=== PATIENT | male | born 1985 | race African-American/Black ===

== ENCOUNTER 2017-04-28 13:39 | Inpatient (IN) | payer MEDICARE, MEDICAID ==
[~2017-04-28] VITALS: Ht 180.3 cm; Wt 85.3 kg
[2017-04-28 15:43] VITALS: BP 106/73
[2017-04-28] MEDS ORDERED: ZOLPIDEM TARTRATE 10 MG TABLET PO PRN (16:00)
[2017-04-28] MEDS ORDERED: OLANZapine 5 MG RAPDIS TABLET PO PRN (16:00)
[2017-04-28 16:35] VITALS: BP 108/73
[2017-04-28] MEDS: LORazepam 2 MG TABLET PO PRN (16:48)
[2017-04-28] MEDS ORDERED: MAG HYDROX/AL HYDROX/SIMETH ES 30 ML SUSPENSION UDCUP PO PRN (18:15)
[2017-04-28] MEDS ORDERED: MAGNESIUM HYDROXIDE SUSPENSION 30 ML UDCUP PO PRN (18:15)
[2017-04-28] MEDS ORDERED: HydrOXYzine PAMOATE 50 MG CAPSULE PO PRN (18:15)
[2017-04-28] MEDS ORDERED: GuaiFENesin/D-METHORPHAN [SUGAR-FREE] 200-20MG/10 ML SYRUP UDCUP PO PRN (18:15)
[2017-04-28] MEDS ORDERED: LOPERAMIDE HCL 2 MG CAPSULE PO PRN (18:15)
[2017-04-28] MEDS ORDERED: OLANZapine 5 MG RAPDIS TABLET PO SCH (21:00)
[2017-04-29 00:10] VITALS: BP 109/64
[2017-04-29] MEDS: LORazepam 2 MG TABLET PO PRN (01:18)
[2017-04-29 08:00] VITALS: BP 121/70
[2017-04-29] MEDS ORDERED: PNEUMOCOCCAL VACCINE POLYVALENT 0.5 ML VIAL [PPSV23] IM ONE (08:00)
[2017-04-29] MEDS ORDERED: FLUoxetine HCL 20 MG CAPSULE PO SCH (09:00)
[2017-04-29 09:08] LABS: BASOPHILS % (AUTO) 0.5 % (0.0-2.0); EOSINOPHILS % (AUTO) 4.3 % (1.0-6.0); HEMATOCRIT 38.4 % (41-53); LYMPHOCYTES # (AUTO) 0.7 K/uL (1.0-4.8); LYMPHOCYTES % (AUTO) 15.9 % (22.0-44.0); MEAN CORPUSCULAR HEMOGLOBIN 27.3 pg (26.0-34.0); MEAN CORPUSCULAR HGB CONC 33.8 G/dL (31.0-37.0); MEAN CORPUSCULAR VOLUME 81 fL (80-100); MONOCYTES # (AUTO) 0.5 K/uL (0.1-1.0); NEUTROPHILS # (AUTO) 3.1 K/uL (1.8-7.7); NEUTROPHILS % (AUTO) 68.3 % (40.0-70.0); PLATELET COUNT (AUTO) 98 K/uL (150-450); RED BLOOD CELL COUNT(AUTO) 4.75 MIL/uL (4.50-5.90); RED CELL DISTRIBUTION WIDTH 15.3 % (11.5-14.5); WHITE BLOOD COUNT (AUTO) 4.5 K/uL (4.5-11.0)
[2017-04-29] MEDS: MULTIVITAMINS WITH MINERALS, THERAPEUTIC TABLET PO SCH (09:30)
[2017-04-29] MEDS: THIAMINE HCL 100 MG TABLET PO SCH ×2 (09:30→16:45)
[2017-04-29] MEDS: FOLIC ACID 1 MG TABLET PO SCH (09:30)
[2017-04-29 09:32] LABS: HEMOGLOBIN A1C 5.8 % (4.5-6.2)
[2017-04-29 09:57] LABS: APPEARANCE,URINE CLEAR (CLEAR); GLUCOSE, URINE (UA) NEGATIVE (NEGATIVE); KETONES,URINE NEGATIVE (NEGATIVE); LEUKOCYTE ESTERASE ,URINE NEGATIVE (NEGATIVE); OCCULT BLOOD,URINE NEGATIVE (NEGATIVE); PH,URINE 7.5 (5.0-8.0); PROTEIN,URINE NEGATIVE (NEGATIVE)
[2017-04-29 09:58] LABS: ADD UA MICROSCOPIC NO
[2017-04-29 10:06] LABS: ALANINE AMINOTRANSFERASE 56 U/L (12-78); ALBUMIN 3.5 g/dL (3.4-5.0); ANION GAP 7 mmol/L (8-16); ASPARTATE AMINOTRANSFERASE 36 U/L (15-37); BILIRUBIN,TOTAL 0.6 mg/dL (0.1-1.0); CALCIUM, TOTAL 8.6 mg/dL (8.8-10.5); CARBON DIOXIDE 27 mmol/L (22-29); CHLORIDE 105 mmol/L (98-107); CHOL/HDL RATIO 3.5 (4.2-7.3); CREATINE KINASE MB 1.3 ng/mL (0-5); CREATINE KINASE, TOTAL 584 U/L (39-308); CREATININE 1.23 mg/dL (0.60-1.30); GLOMERULAR FILTR. RATE CALC > 60 mL/min (>60); POTASSIUM 3.8 mmol/L (3.5-5.1); SODIUM SERUM 139 mmol/L (136-145); THYROID STIMULATING HORMONE 0.53 uIU/mL (0.36-3.74); TOTAL PROTEIN, SERUM 7.1 g/dL (6.4-8.2); UREA NITROGEN, BLOOD 8 mg/dL (7-18)
[2017-04-29] MEDS ORDERED: LORazepam 2 MG TABLET PO ONE (14:00)
[2017-04-29 16:00] VITALS: BP 117/67
[2017-04-29] MEDS: MAGNESIUM OXIDE 400 MG TABLET PO SCH (16:45)
[2017-04-29] MEDS: DICYCLOMINE HCL 10 MG CAPSULE PO SCH (16:45)
[2017-04-29] MEDS: PARoxetine HCL 20 MG TABLET PO SCH (20:38)
[2017-04-29] MEDS: TraZODone HCL 100 MG TABLET PO SCH (20:38)
[2017-04-29] MEDS: OLANZapine 5 MG RAPDIS TABLET PO SCH (20:38)
[2017-04-30] VITALS (7 sets, daily range): BP systolic 100–116; BP diastolic 61–81
[2017-04-30] MEDS: ACETAMINOPHEN 325 MG TABLET PO PRN ×2 (00:20→16:05)
[2017-04-30] MEDS: DARUNAVIR ETHANOLATE 800 MG TABLET PO SCH (06:43)
[2017-04-30] MEDS: MULTIVITAMINS WITH MINERALS, THERAPEUTIC TABLET PO SCH (08:54)
[2017-04-30] MEDS: MAGNESIUM OXIDE 400 MG TABLET PO SCH ×2 (08:54→16:05)
[2017-04-30] MEDS: DICYCLOMINE HCL 10 MG CAPSULE PO SCH ×2 (08:54→16:05)
[2017-04-30] MEDS: FOLIC ACID 1 MG TABLET PO SCH (08:54)
[2017-04-30] MEDS: EMTRICITABINE/TENOFOVIR 200-300 MG TABLET PO SCH (08:54)
[2017-04-30] MEDS: THIAMINE HCL 100 MG TABLET PO SCH ×2 (08:54→16:05)
[2017-04-30 09:16] LABS: LYMPHS % FOR CD4 COUNT 17 %; LYMPHS ABS FOR CD4 COUNT 0.7 x10E3/uL (0.7-3.1); WBC FOR CD4 COUNT 4.3 x10E3/uL (3.4-10.8)
[2017-04-30 11:09] LABS: HEPATITIS Bs ANTIGEN SCREEN P Negative (Negative); HEPATITIS C AB SCREEN <0.1 s/co ratio (0.0-0.9)
[2017-04-30 15:09] LABS: ABSOLUTE CD4 COUNT 104 /uL (359-1519); PERCENT CD4 CELLS 14.9 % (30.8-58.5)
[2017-04-30] MEDS: PROMETHAZINE HCL 25 MG TABLET PO PRN (17:08)
[2017-04-30] MEDS: SULFAMETHOX/TRIMETH DS 800-160 MG/TABLET PO SCH (17:08)
[2017-04-30] MEDS ORDERED: bactrim PO (19:23)
[2017-04-30] MEDS ORDERED: DICY10 PO (19:26)
[2017-04-30] MEDS ORDERED: PROM25 PO (19:26)
[2017-04-30] MEDS ORDERED: VITA1TAB22 PO (19:26)
[2017-04-30] MEDS ORDERED: ACET-784 PO (19:26)
[2017-04-30] MEDS: OLANZapine 5 MG RAPDIS TABLET PO SCH (21:00)
[2017-04-30] MEDS: TraZODone HCL 100 MG TABLET PO SCH (21:00)
[2017-04-30] MEDS: PARoxetine HCL 20 MG TABLET PO SCH (21:00)
[2017-05-01 00:05] VITALS: BP 101/60
[2017-05-01] MEDS ORDERED: GuaiFENesin/CODEINE [SUGAR FREE] 200-20MG/10 ML SYRUP UDCUP PO PRN (05:00)
[2017-05-01] MEDS ORDERED: ALBUTEROL SULFATE HFA 90 MCG/PUFF 8 GM INHALER IH SCH (06:00)
[2017-05-01] MEDS ORDERED: ALBUTEROL SULFATE HFA 90 MCG/PUFF 8 GM INHALER IH PRN (06:45)
[2017-05-01 06:51] VITALS: BP 106/65
[2017-05-01] MEDS: ACETAMINOPHEN 325 MG TABLET PO PRN ×2 (06:54→16:29)
[2017-05-01] MEDS: DARUNAVIR ETHANOLATE 800 MG TABLET PO SCH (07:03)
[2017-05-01 08:34] VITALS: BP 114/64
[2017-05-01] MEDS: MULTIVITAMINS WITH MINERALS, THERAPEUTIC TABLET PO SCH (08:37)
[2017-05-01] MEDS: MAGNESIUM OXIDE 400 MG TABLET PO SCH ×2 (08:38→16:48)
[2017-05-01] MEDS: THIAMINE HCL 100 MG TABLET PO SCH ×2 (08:38→16:48)
[2017-05-01] MEDS: SULFAMETHOX/TRIMETH DS 800-160 MG/TABLET PO SCH (08:38)
[2017-05-01] MEDS: DICYCLOMINE HCL 10 MG CAPSULE PO SCH ×2 (08:38→16:48)
[2017-05-01] MEDS: FOLIC ACID 1 MG TABLET PO SCH (08:38)
[2017-05-01] MEDS: CLARITHROMYCIN 500 MG TABLET PO SCH ×2 (08:38→16:48)
[2017-05-01] MEDS: EMTRICITABINE/TENOFOVIR 200-300 MG TABLET PO SCH (08:38)
[2017-05-01 08:49] LABS: CREATINE KINASE, TOTAL 162 U/L (39-308)
[2017-05-01 09:01] LABS: CREATINE KINASE MB < 0.5 ng/mL (0-5)
[2017-05-01] MEDS: LORazepam 2 MG TABLET PO PRN (11:45)
[2017-05-01] MEDS ORDERED: PARO20TA24 PO (11:48)
[2017-05-01] MEDS ORDERED: TRAZ-147 PO (11:48)
[2017-05-01] MEDS ORDERED: OLAN5Z PO (11:48)
[2017-05-01 13:33] LABS: HIV CONFIRM? YES (NP)
[2017-05-01 16:14] VITALS: BP 111/65
[2017-05-01] MEDS: OLANZapine 5 MG RAPDIS TABLET PO SCH (20:39)
[2017-05-01] MEDS: TraZODone HCL 100 MG TABLET PO SCH (20:39)
[2017-05-01] MEDS ORDERED: PARoxetine HCL 20 MG TABLET PO SCH (21:00)
[2017-05-02] MEDS: PROMETHAZINE HCL 25 MG TABLET PO PRN (00:22)
[2017-05-02 00:25] VITALS: BP 116/64
[2017-05-02] MEDS: LORazepam 2 MG TABLET PO PRN (00:28)
[2017-05-02 06:00] VITALS: BP 101/60
[2017-05-02] MEDS: DARUNAVIR ETHANOLATE 800 MG TABLET PO SCH (07:05)
[2017-05-02] MEDS ORDERED: CLAR500T3 PO (08:30)
[2017-05-02] MEDS ORDERED: DARU800T PO (08:31)
[2017-05-02] MEDS ORDERED: FOLI1 PO (08:32)
[2017-05-02] MEDS ORDERED: EMTR1TAB11 PO (08:32)
[2017-05-02] MEDS ORDERED: MAGOX PO (08:33)
[2017-05-02 08:35] VITALS: BP 98/59
[2017-05-02] MEDS ORDERED: MULT-1239 PO (08:36)
[2017-05-02] MEDS ORDERED: OLAN10TA3 PO (08:36)
[2017-05-02] MEDS ORDERED: PARO20TA24 PO (08:37)
[2017-05-02] MEDS ORDERED: TRAZ-147 PO (08:37)
[2017-05-02] MEDS: THIAMINE HCL 100 MG TABLET PO SCH ×2 (08:38→16:25)
[2017-05-02] MEDS: DICYCLOMINE HCL 10 MG CAPSULE PO SCH ×2 (08:38→16:25)
[2017-05-02] MEDS: CLARITHROMYCIN 500 MG TABLET PO SCH ×2 (08:38→16:25)
[2017-05-02] MEDS: SULFAMETHOX/TRIMETH DS 800-160 MG/TABLET PO SCH (08:38)
[2017-05-02] MEDS: EMTRICITABINE/TENOFOVIR 200-300 MG TABLET PO SCH (08:38)
[2017-05-02] MEDS: FOLIC ACID 1 MG TABLET PO SCH (08:38)
[2017-05-02] MEDS: MULTIVITAMINS WITH MINERALS, THERAPEUTIC TABLET PO SCH (08:38)
[2017-05-02] MEDS: MAGNESIUM OXIDE 400 MG TABLET PO SCH ×2 (08:38→16:25)
[2017-05-02 16:30] VITALS: BP 103/59
== END 2017-05-02 17:00 | disposition home or self-care (01) | DRG 885 ==
LOC: B2X 15:54
PROVIDERS: ADMIT Psychiatry & Neurology Psychiatry; ATTEND Psychiatry & Neurology Psychiatry
DX: F25.9 Schizoaffective disorder, unspecified (principal); G93.41 Metabolic encephalopathy; M62.82 Rhabdomyolysis; K58.9 Irritable bowel syndrome, unspecified; B00.9 Herpesviral infection, unspecified; I51.7 Cardiomegaly; F19.10 Other psychoactive substance abuse, uncomplicated; F17.200 Nicotine dependence, unspecified, uncomplicated; E83.42 Hypomagnesemia; D64.9 Anemia, unspecified; D69.6 Thrombocytopenia, unspecified; Z59.0 Homelessness
CPT/HCPCS: 80074; 80307; 82306; 82607; 82746; 83036; 83735; 84436; 84439; 84443; 86361; 86592; 86701; 86702; 87389; 93005; J3535

== ENCOUNTER 2017-04-30 19:10 | Emergency (ER) | payer MEDICARE, MEDICAID ==
[~2017-04-30] VITALS: Ht 180.3 cm; Wt 81.8 kg
[2017-04-30] MEDS ORDERED: bactrim PO (19:23)
[2017-04-30] MEDS ORDERED: DICY10 PO (19:26)
[2017-04-30] MEDS ORDERED: VITA1TAB22 PO (19:26)
[2017-04-30] MEDS ORDERED: PROM25 PO (19:26)
[2017-04-30] MEDS ORDERED: ACET-784 PO (19:26)
[2017-04-30] MEDS ORDERED: ALBUTEROL SULFATE 2.5 MG/0.5 ML NEB SOLUTION NEB ONE (20:15)
[2017-04-30] MEDS ORDERED: SODIUM CHLORIDE 0.9% 1,000 ML IV ONE (20:15)
[2017-04-30 20:31] LABS: ANION GAP 7 mmol/L (8-16); CARBON DIOXIDE 30 mmol/L (22-29); CHLORIDE 100 mmol/L (98-107); CREATININE 1.38 mg/dL (0.60-1.30); GLOMERULAR FILTR. RATE CALC > 60 mL/min (>60); POTASSIUM 4.1 mmol/L (3.5-5.1); SODIUM SERUM 137 mmol/L (136-145); UREA NITROGEN, BLOOD 10 mg/dL (7-18)
[2017-04-30 20:35] LABS: BASOPHILS % (AUTO) 0.4 % (0.0-2.0); EOSINOPHILS % (AUTO) 1.6 % (1.0-6.0); HEMATOCRIT 41.2 % (41-53); HEMOGLOBIN 14.1 g/dL (13.5-17.5); LYMPHOCYTES # (AUTO) 0.6 K/uL (1.0-4.8); MEAN CORPUSCULAR HEMOGLOBIN 27.4 pg (26.0-34.0); MEAN CORPUSCULAR HGB CONC 34.2 G/dL (31.0-37.0); MEAN CORPUSCULAR VOLUME 80 fL (80-100); MONOCYTES # (AUTO) 0.5 K/uL (0.1-1.0); MONOCYTES % (AUTO) 11.4 % (2.0-9.0); NEUTROPHILS # (AUTO) 3.2 K/uL (1.8-7.7); NEUTROPHILS % (AUTO) 72.6 % (40.0-70.0); PLATELET COUNT (AUTO) 106 K/uL (150-450); RED BLOOD CELL COUNT(AUTO) 5.15 MIL/uL (4.50-5.90); WHITE BLOOD COUNT (AUTO) 4.5 K/uL (4.5-11.0)
[2017-04-30 20:37] LABS: ALANINE AMINOTRANSFERASE 46 U/L (12-78); ASPARTATE AMINOTRANSFERASE 23 U/L (15-37); BILIRUBIN,TOTAL 0.5 mg/dL (0.1-1.0); TOTAL PROTEIN, SERUM 8.1 g/dL (6.4-8.2)
[2017-04-30] MEDS ORDERED: IBUPROFEN 800 MG TABLET PO ONE (21:00)
[2017-04-30 21:31] LABS: INFLUENZA TYPE B NEGATIVE FOR TYPE B (NEGATIVE)
[2017-04-30 22:09] LABS: APPEARANCE,URINE CLEAR (CLEAR); GLUCOSE, URINE (UA) NEGATIVE (NEGATIVE); KETONES,URINE NEGATIVE (NEGATIVE); LEUKOCYTE ESTERASE ,URINE NEGATIVE (NEGATIVE); OCCULT BLOOD,URINE NEGATIVE (NEGATIVE); PROTEIN,URINE NEGATIVE (NEGATIVE)
[2017-04-30 22:15] LABS: RBC,URINE 0-2 /HPF (0-2); SQUAMOUS EPITHELIAL CELL,UR Rare /LPF (None Seen); WBC,URINE 0-2 /HPF (0-5)
[2017-04-30] MEDS ORDERED: CefTRIAXone 1 GM/DEXTROSE 50 ML IV ONE (22:45)
[2017-04-30 23:22] VITALS: BP 117/80
[2017-05-01] MEDS ORDERED: PARO20TA24 PO (11:48)
[2017-05-01] MEDS ORDERED: TRAZ-147 PO (11:48)
[2017-05-01] MEDS ORDERED: OLAN5Z PO (11:48)
== END 2017-04-30 23:45 | disposition home or self-care (01) ==
LOC: EMS 19:12
DX: J18.9 Pneumonia, unspecified organism (principal); F17.210 Nicotine dependence, cigarettes, uncomplicated; Z88.5 Allergy status to narcotic agent
CPT/HCPCS: 36415; 71010; 80053; 81001; 85025; 87040; 87804; 94640; 96360; 96365; 99285; J0696; J7030